=== PATIENT | female | born 1935 | race Caucasian/White ===

== ENCOUNTER → 2017-04-17 | Outpatient (CLI) | payer MEDICARE ==
[2017-04-17 15:10] LABS: EKG EKG PERFORMED
[2017-04-17 15:50] LABS: CH 30.9; CHCM 33.1; HCT 42.3 % (34.0-46.0); HDW 2.25; HGB 13.7 gm/dL (11.4-16.0); MCH 30.4 pg (25.0-35.0); MCHC 32.4 g/dL (31.0-37.0); MCV 93.6 fL (80.0-100.0); Mean Platelet Volume 8.1; RBC 4.51 m/uL (3.80-5.40); RDW 13.5 % (11.5-15.5); WBC 7.3 k/uL (3.8-10.6)
[2017-04-17 15:52] LABS: Appearance,Urine Clear (Clear); Bilirubin,Urine Negative (Negative); Glucose,Urine (UA) Negative (Negative); Ketones,Urine Negative (Negative); Leukocyte Esterase,Urine Negative (Negative); Nitrite,Urine Negative (Negative); Protein,Urine Negative (Negative); Specific Gravity,Urine 1.006 (1.001-1.035); UA Billing (MACRO vs. MICRO) CHEM; Urobilinogen,Urine <2.0 mg/dL (<2.0)
[2017-04-17 16:02] LABS: Partial Thromboplastin Time 23.4 sec (22.0-30.0); Prothrombin Time 10.2 sec (9.0-12.0)
[2017-04-17 16:18] LABS: ALT 26 U/L (9-52); AST 24 U/L (14-36); Alkaline Phosphatase 87 U/L (38-126); Anion Gap 8 mmol/L; Blood Urea Nitrogen 19 mg/dL (7-17); Calcium 9.2 mg/dL (8.4-10.2); Carbon Dioxide 30 mmol/L (22-30); Chloride 98 mmol/L (98-107); Glucose 79 mg/dL (74-99); Non-African American GFR(MDRD) >60 (>60 ml/min/1.73 sqM); Sodium 136 mmol/L (137-145); Total Bilirubin 0.3 mg/dL (0.2-1.3); Total Protein 6.9 g/dL (6.3-8.2)
== END | disposition home or self-care (01) ==
LOC: LABPAT 14:47
PROVIDERS: ATTEND Orthopaedic Surgery
DX: Z01.810 Encounter for preprocedural cardiovascular examination (principal); Z01.812 Encounter for preprocedural laboratory examination; Z51.81 Encounter for therapeutic drug level monitoring; Z79.01 Long term (current) use of anticoagulants
CPT/HCPCS: 36415; 80053; 81003; 85027; 85610; 85730; 87070; 93005

== ENCOUNTER 2017-05-03 07:30 | Inpatient (IN) | payer MEDICARE ==
[2017-04-22 14:54] VITALS: BMI 27.6
[~2017-05-03 07:30] MED LIST: ACETAMINOPHEN TAB 500 MG TAB PO ONE; CLINDAMYCIN 900 MG in DEXTROSE 5% IN WATER 50 ML IVPB ONE; DEXAMETHASONE SOD PHOSPHATE 10 MG/ML 1 ML VIAL IV ONE; HYDROmorphone 0.5 MG/0.5 ML SYRINGE IVP PRN; MELOXICAM 7.5 MG TAB PO ONE; MIDAZOLAM 2 MG/2 ML VIAL IV PRN; ONDANSETRON 4 MG/2 ML VIAL IVP ONE; TRANEXAMIC ACID 1,000 MG in SODIUM CHLORIDE 0.9% 100 ML IVPB ONE
[2017-05-03] MEDS: LACTATED RINGERS 1,000 ML IV SCH (13:45)
[2017-05-03] MEDS ORDERED: fentaNYL (PF) 50 MCG/ML 2 ML AMP IVP ONE (14:06)
[2017-05-03] MEDS ORDERED: DIAZEPAM 5 MG TAB PO PRN ×2 (14:12)
[2017-05-03] MEDS ORDERED: HYDROmorphone 1 MG/ML 1 ML SYRINGE IVP PRN (14:12)
[2017-05-03] MEDS ORDERED: HYDROmorphone 0.5 MG/0.5 ML SYRINGE IVP PRN ×3 (14:12)
[2017-05-03] MEDS ORDERED: NALOXONE 0.4 MG/ML 1 ML VIAL IV PRN (14:12)
[2017-05-03] MEDS ORDERED: HYDROcodone/APAP 5-325MG 1 EACH TAB PO PRN (14:12)
[2017-05-03] MEDS ORDERED: BISACODYL 10 MG SUPP RECTAL PRN (14:12)
[2017-05-03] MEDS ORDERED: hydrOXYzine PAMOATE 25 MG CAP PO PRN (14:12)
[2017-05-03] MEDS ORDERED: ONDANSETRON 4 MG/2 ML VIAL IVP PRN (14:12)
[2017-05-03] MEDS ORDERED: MAGNESIUM HYDROXIDE 2,400 MG/10 ML CUP PO PRN (14:12)
[2017-05-03] MEDS ORDERED: NA PHOS,M-B/NA PHOS,DI-BA 133 ML ENEMA RECTAL PRN (14:12)
[2017-05-03] MEDS ORDERED: ROPIVACAINE 1,100 MG, SODIUM CHLORIDE 0.9% 330 ML MISCELLANE PRN ×2 (14:34)
--- NOTE | 2017-05-03 14:37 | P.ONQ ---
Anesthesiology Proc Note - PNB - Peripheral Nerve Block Performed Right Adductor Canal Infusion Time Out Performed: Yes Indication: Acute Post-Operative Pain, Analgesia Specifically requested for management of pain by DrGabbi: Oscar Aguilar Sedation Type: Sedate with meaningful contact maintained Preparation: Sterile Prep Position: Supine Catheter Depth at Skin (cm): 8 Catheter: Indwelling Needle Types: Other (see comment) (Pajunk) Needle Size: 100mm (4") Needle Gauge: 18 Technique: Ultrasound Injectate: 0.5% Ropivacaine (see comment for volume) (20cc) Blood Aspirated: No Pain Paresthesia on Injection Noted: No Resistance on Injection: Normal Events: Uneventful and Well Tolerated
[2017-05-03] MEDS ORDERED: SODIUM CHLORIDE 0.9% 100 ML BAG ONE (14:48)
[2017-05-03] MEDS ORDERED: TRANEXAMIC ACID 1,000 MG/10 ML VIAL ONE (14:48)
[2017-05-03] MEDS ORDERED: PROPOFOL 10 MG/ML 20 ML VIAL IV ONE (14:48)
[2017-05-03] MEDS ORDERED: ePHEDrine SULFATE/0.9% NACL/PF 50 MG/5 ML SYRINGE IV ONE (14:48)
[2017-05-03] MEDS ORDERED: MIDAZOLAM 2 MG/2 ML VIAL ONE (14:48)
[2017-05-03] MEDS ORDERED: fentaNYL (PF) 50 MCG/ML 2 ML AMP ONE (14:48)
[2017-05-03] MEDS ORDERED: CLINDAMYCIN 1,800 MG in SODIUM CHLORIDE 0.9% IRRIGATIO 3,000 ML IRRIGATION ONE (15:01)
[2017-05-03] MEDS: ROPIVACAINE 246.25 MG, EPINEPHrine 0.5 MG, KETOROLAC 30 MG, cloNIDine HCL/PF 80 MCG, WA... MISCELLANE ONE ×10 (15:26→15:57)
--- NOTE | 2017-05-03 16:13 | P.OP ---
Date of Procedure: 05/03/17 Preoperative Diagnosis: Severe osteoarthritis right knee Postoperative Diagnosis: Severe osteoarthritis right knee Procedure(s) Performed: Right total knee arthroplasty Implants: Max and Nephew Oxinium femoral component size 4, right Max & Nephew Jailyn II right nonporous tibial baseplate size 3 Max & Nephew size 9 mm Legion XLPE dished articular insert, size 3-4 Max & Nephew Jailyn II resurfacing patellar component, 29 mm All components were cemented using Merritt bone cement.. The articulation is Oxinium on polyethylene. Anesthesia: spinal Surgeon: Oscar Aguilar Crane Crew Supervisor #1: Adelina Luna Estimated Blood Loss (ml): 50 Pathology: other (Bone and cartilage) Condition: stable Disposition: PACU Indications for Procedure: After failure of conservative treatment we discussed the surgical and nonsurgical treatment options at length. Patient wishes to proceed with a total knee arthroplasty. Complications specific to this procedure were discussed at length, including but not limited to infection, bleeding, stiffness , and nerve injury. Patient is aware of all these complications and informed consent was obtained Operative Findings: The operative findings are consistent with severe osteoarthritis of the right knee Description of Procedure: Patient was seen in the preoperative area consent was reviewed and operative site was marked with a skin marker. An adductor canal pain catheter was placed by anesthesia in the preoperative area. Patient was then brought to the operating room and given preoperative antibiotics intravenously. A spinal anesthetic was administered by the anesthesia department. A tourniquet was placed on the upper thigh and the lower extremity was prepped and draped in usual sterile fashion. A gram of transexamic acid was given. A universal timeout was then performed which confirmed the patient's name, surgical site, ALLERGIES, and consent. The lower extremity was then exsanguinated and tourniquet was inflated to 250 mmHg. A standard and anterior midline approach to the knee was performed. The skin and subcutaneous tissue was dissected down to the patellar tendon. A medial parapatellar arthrotomy was then performed. The knee was then extended, the patellar was everted, and the knee was again flexed. Anterior horns of both menisci were excised, and a release was performed to the posterior medial aspect of the knee. On gross visual inspection, there was complete loss of articular cartilage in the medial and patellofemoral joint spaces. There was also significant cartilage damage in the lateral compartment. There were multiple periarticular osteophytes which were then removed with a Ronguer. The femoral canal was then opened with the appropriate drill, and the intramedullary femoral cutting guide was then placed and set for 4 of valgus. The distal femoral cutting block was then pinned in place, and the distal femur was then cut. The cutting block was then removed and the cut was checked for flatness. Next, the sizing guide was then placed and set for 3 external rotation based off of the epicondylar axis and Whitesides line. After the femur was sized, the appropriate 4-in-1 cutting block was then pinned in place. The anterior condyles were cut without notching. The posterior and chamfer cuts were performed while protecting the collateral ligaments. The cutting block was then removed, and the femoral canal was plugged with autologous bone. Attention was then directed to the tibia. The remaining ACL was removed with a Ronguer, and the tibia was then gently subluxed forward with a large bent knee retractor. Any remaining menisci was excised. The posterior lateral corner was cauterized in order to cauterize the lateral geniculate artery. The extra medullary tibial cutting guide was then placed, set for the appropriate rotation , slope, and depth of resection. The proximal tibia cutting guide was then pinned in place. Proximal tibia was then cut and sized. Next trials were then placed with the appropriate-sized insert. The knee was able to fully extend and flex to 130 and was stable throughout all range of motion. The knee was then extended, patella everted. Patella was then measured, and then using an osteotomy guide, the patella was cut at the appropriate level. The patella was then measured and drilled and the patella trial was then placed. The knee was then taken through range of motion with the patella trial and the patella tracked normally. The knee was then extended patella trial was then removed and the patella was everted. Knee was then flexed and lug holes were drilled through the femoral trial and the femoral trial was then removed. The tibial was then exposed, and the tibial broach guide was then pinned in place after it was set for the appropriate rotation to allow for the most coverage without overhang. The tibia was then reamed and broached. The cut surfaces of bone were then irrigated with pulsatile lavage. The posterior structures were injected with the ropivacaine solution. The knee was also irrigated with Irrisept solution. The components were then opened, the cement was mixed, and the components were then cemented in place. The cement was allowed to harden with the knee in full extension. While the cement was hardening, the remaining soft tissues were then injected with a ropivacaine solution, which consisted of 246.25 mg of ropivacaine, 0.5 mg of epinephrine, 30 mg of Toradol, 80 g of clonidine, and 48.45 mL of sterile water, for a total of 100 mL of fluid injected. After the cemented hardened. The tourniquet was released, and hemostasis was obtained. A second gram of transexamic acid was given. The knee was again irrigated. The knee was again taken through range of motion and found to be stable throughout all range of motion of 0-130 , and the patella tracked normally. The fascia was then closed with #2 strata fix suture. The subcutaneous tissue was closed with 3-0 Vicryl and 3-0 strata fix. Dermabond tape was used for the skin and placed with the knee in flexion. The patient was placed in a sterile dressing. Patient was then transferred to recovery room in stable condition. The human resource assistant HADLEY Brice was required due the complexity surgery and the need for a skilled certified surgical first assistant. She assisted in positioning, draping, retraction, and closure of the wound.
[2017-05-03] MEDS: SODIUM CHLORIDE 0.9% 1,000 ML IV SCH (17:09)
--- NOTE | 2017-05-03 17:17 | XR ---
EXAMINATION TYPE: XR knee limited RT DATE OF EXAM: 05/03/2017 COMPARISON: NONE HISTORY: 81-year-old female evaluation for postoperative abnormality and alignment TECHNIQUE: Portable AP and lateral views FINDINGS: Images show placement of right total knee arthroplasty. Both distal femoral and proximal tibial compo nents of the prosthesis are well seated without periprosthetic fracture. Alignment is grossly anatomi c. Anterior soft tissue swelling with soft tissue gas as well as intra-articular air and joint effusi on compatible with recent operation. IMPRESSION: Uncomplicated postoperative appearance right total knee arthroplasty.
[2017-05-03] MEDS ORDERED: ACETAMINOPHEN TAB 325 MG TAB PO PRN (18:20)
[2017-05-03] MEDS ORDERED: KETOROLAC 30 MG/ML 1 ML VIAL IVP PRN (18:21)
--- NOTE | 2017-05-03 19:11 | P.CONS ---
History of Present Illness - Reason for Consult Perioperative consultation management - History of Present Illness Patient is admitted for right knee arthroplasty, elective Patient postoperatively is clinically doing well denied any fever, chills, nausea, vomiting, abdominal pain, dysuria, cough. Does drink her age recommend to avoid opiates, benzos ,barbiturates and use nonsteroidal anti-inflammatories for pain and patient will be started on Pepcid for GI prophylaxis due to prophylaxis as per primary service Review of Systems REVIEW OF SYSTEMS: CONSTITUTIONAL: No fever, no malaise, no fatigue. HEENT: No recent visual problems or hearing problems. Denied any sore throat. CARDIOVASCULAR: No chest pain, orthopnea, PND, no palpitations, no syncope. PULMONARY: No shortness of breath, no cough, no hemoptysis. GASTROINTESTINAL: No diarrhea, no nausea, no vomiting, no abdominal pain. Normoactive bowel sounds. NEUROLOGICAL: No headaches, no weakness, no numbness. HEMATOLOGICAL: Denies any bleeding or petechiae. GENITOURINARY: Denies any burning micturition, frequency, or urgency. MUSCULOSKELETAL/RHEUMATOLOGICAL: Denies any joint pain, swelling, or any muscle pain. ENDOCRINE: Denies any polyuria or polydipsia. The rest of the 14-point review of systems is negative. Past Medical History Past Medical History: GERD/Reflux, Hyperlipidemia, Hypertension, Osteoarthritis (OA) Additional Past Medical History / Comment(s): unable to tolerate statins, sinus problems, urinary incontinence History of Any Multi-Drug Resistant Organisms: None Reported Past Surgical History: Bladder Surgery, Orthopedic Surgery Additional Past Surgical History / Comment(s): bladder suspension, rt knee arthroscopy, hemmoroidectomy, latasha cataracts, rt eye sx for "hole in eye" Past Anesthesia/Blood Transfusion Reactions: No Reported Reaction Smoking Status: Former smoker - Past Family History Father Family Medical History: Cancer Medications and Allergies Home Medications Medication Instructions Recorded Confirmed Type Acetaminophen [Tylenol] 325 - 650 mg PO Q4H PRN 04/22/17 04/22/17 History Cholecalciferol [Vitamin D3] 1,000 unit PO DAILY 04/22/17 04/22/17 History Citalopram Hydrobromide 20 mg PO HS 04/22/17 04/22/17 History [Citalopram HBr] Hydrochlorothiazide 12.5 mg PO DAILY 04/22/17 04/22/17 History Omeprazole 20 mg PO DAILY 04/22/17 04/22/17 History amLODIPine [Norvasc] 2.5 mg PO QAM 04/22/17 05/03/17 History Allergies Allergy/AdvReac Type Severity Reaction Status Date / Time cephalexin [From Keflex] Allergy Rash/Hives Verified 05/03/17 18:19 Iodinated Contrast- Oral and Allergy Rash/Hives Verified 05/03/17 18:19 IV Dye Penicillins Allergy Rash/Hives Verified 05/03/17 18:19 Fnfttcm-Mxi-Stk Reductase AdvReac muscle pain Verified 05/03/17 18:19 Inhibitor Physical Exam Vitals: Vital Signs Temp Pulse Resp BP Pulse Ox 05/03/17 17:15 74 16 108/59 94 L 05/03/17 17:00 75 16 101/57 94 L 05/03/17 16:45 76 14 118/57 94 L 05/03/17 16:39 98.2 F 78 14 116/61 94 L 05/03/17 13:29 97.9 F 54 L 18 114/67 97 Intake and Output 05/03/17 05/03/17 05/03/17 06:59 14:59 22:59 Intake Total 956 151 Output Total 50 Balance 956 101 Intake: IV 956 151 Output: Estimated Blood Loss 50 PHYSICAL EXAMINATION: GENERAL: The patient is alert and oriented x3, not in any acute distress. Well developed, well nourished. HEENT: Pupils are round and equally reacting to light. EOMI. No scleral icterus. No conjunctival pallor. Normocephalic, atraumatic. No pharyngeal erythema. No thyromegaly. CARDIOVASCULAR: S1 and S2 present. No murmurs, rubs, or gallops. PULMONARY: Chest is clear to auscultation, no wheezing or crackles. ABDOMEN: Soft, nontender, nondistended, normoactive bowel sounds. No palpable organomegaly. MUSCULOSKELETAL: Deferred to orthopedic surgery EXTREMITIES: No cyanosis, clubbing, or pedal edema. NEUROLOGICAL: Gross neurological examination did not reveal any focal deficits. SKIN: No rashes. Assessment and Plan Plan: #1 total right knee arthroplasty: Postoperatively patient is clinically doing well pain management as mentioned abortively prophylaxis as mentioned above. #2 hypertension: To prevent perioperative hypotension, antidepressive medications will be held. #3 gastroesophageal reflux disease #4 hyperlipidemia For above-mentioned medical problems will continue appropriate home medications
[2017-05-03] MEDS: SENNOSIDES-DOCUSATE SODIUM 1 EACH TAB PO SCH (20:28)
[2017-05-03] MEDS: ASPIRIN 325 MG TAB PO SCH (20:29)
[2017-05-03] MEDS: CITALOPRAM HYDROBROMIDE 20 MG TAB PO SCH (20:29)
[2017-05-03] MEDS: CLINDAMYCIN 900 MG in DEXTROSE 5% IN WATER 50 ML IVPB SCH ×2 (20:29)
[2017-05-04] MEDS: CLINDAMYCIN 900 MG in DEXTROSE 5% IN WATER 50 ML IVPB SCH ×2 (03:23)
[2017-05-04 07:28] LABS: Basophils % (A) 0 %; CH 30.6; CHCM 32.9; Eosinophils % (A) 0 %; HCT 36.5 % (34.0-46.0); HDW 2.21; HGB 11.6 gm/dL (11.4-16.0); Luc # (Auto) 0.11; Luc % (Auto) 1; Lymphocytes # (A) 1.2 k/uL (1.0-4.8); Lymphocytes % (A) 9 %; MCH 29.8 pg (25.0-35.0); MCHC 31.9 g/dL (31.0-37.0); MCV 93.5 fL (80.0-100.0); Mean Platelet Volume 8.6; Monocytes # (A) 0.9 k/uL (0-1.0); Monocytes % (A) 7 %; Neutrophils # (A) 10.9 k/uL (1.3-7.7); Neutrophils % (A) 83 %; RDW 14.3 % (11.5-15.5); WBC 13.2 k/uL (3.8-10.6); WBC (Perox) 14.23
[2017-05-04] MEDS: PANTOPRAZOLE 40 MG TABLET PO SCH (08:16)
[2017-05-04] MEDS: ASPIRIN 325 MG TAB PO SCH ×2 (08:16→22:23)
[2017-05-04] MEDS: MELOXICAM 7.5 MG TAB PO SCH (08:17)
[2017-05-04] MEDS: SODIUM CHLORIDE 0.9% 1,000 ML IV SCH (08:22)
--- NOTE | 2017-05-04 10:44 | P.PN ---
Subjective Progress Note Date: 05/04/17 This is an 81-year-old female who is status post right total knee arthroplasty. This is postoperative day #1. Patient states her pain is well controlled. Patient does not have any new complaints today. Objective - Vital Signs Vital signs: Vital Signs Temp 98.1 F 05/04/17 07:00 Pulse 64 05/04/17 07:00 Resp 14 05/04/17 07:00 BP 112/68 05/04/17 07:00 Pulse Ox 92 L 05/04/17 07:00 Intake & Output 05/03/17 05/04/17 05/04/17 18:59 06:59 18:59 Intake Total 1107 160 Output Total 50 Balance 1057 160 Intake: IV 1107 Oral 160 Output: Estimated Blood Loss 50 Other: Voiding Method Bedside Commode Bedside Commode Diaper Diaper # Voids 2 2 - Exam Vital signs are stable. Patient is in no acute distress and is alert and oriented 3. Calf is soft and nontender. Dressing is clean, dry, and intact over right knee. Neurovascular status intact. Patient has full foot and ankle motion. - Labs CBC & Chem 7: 05/04/17 06:39 Labs: Abnormal Lab Results - Last 24 Hours (Table) 05/04/17 Range/Units 06:39 WBC 13.2 H (3.8-10.6) k/uL Neutrophils # 10.9 H (1.3-7.7) k/uL Assessment and Plan (1) Primary osteoarthritis of right knee Current Visit: Yes Status: Acute Code(s): M17.11 - UNILATERAL PRIMARY OSTEOARTHRITIS, RIGHT KNEE SNOMED Code(s): 549075226 (2) S/P total knee arthroplasty Current Visit: Yes Status: Acute Code(s): Z96.659 - PRESENCE OF UNSPECIFIED ARTIFICIAL KNEE JOINT SNOMED Code(s): 0258423162906 Plan: #1 Continue with routine postoperative care. Leave dressing in place for 1 week. #2 Anticoagulation with aspirin. #3 Physical therapy and CPM today. #4 Appreciate input from medicine. #5 Anticipate discharge to rehab Saturday.
[2017-05-04] MEDS: HYDROcodone/APAP 5-325MG 1 EACH TAB PO PRN (14:03)
--- NOTE | 2017-05-04 18:29 | P.PN ---
Progress Note - Text 1042 Anesthesia POD 1. Patient is status post right TKR under spinal anesthesia with a right adductor canal catheter placed for postoperative pain relief. With ropivacaine 0.2% running at 12 cc's per hour, the patient's VAS is (3, 4] although she was readily able to stand to get untangled from her hospital gown with no grimacing). Catheter site is clean dry and intact.
[2017-05-04] MEDS: LACTATED RINGERS 1,000 ML IV SCH (22:21)
[2017-05-04] MEDS: SENNOSIDES-DOCUSATE SODIUM 1 EACH TAB PO SCH (22:23)
[2017-05-04] MEDS: CITALOPRAM HYDROBROMIDE 20 MG TAB PO SCH (22:23)
[2017-05-05] MEDS: SODIUM CHLORIDE 0.9% 1,000 ML IV SCH ×2 (01:41→18:07)
[2017-05-05] MEDS: PANTOPRAZOLE 40 MG TABLET PO SCH (07:48)
--- NOTE | 2017-05-05 08:15 | P.PN ---
Subjective This is an 81-year-old female who is status post right total knee arthroplasty. This is postoperative day #2. Patient states her pain is well controlled. Patient has been up and walking with physical therapy. Patient does complain of loose stool today after a stool softener was given, otherwise patient does not have any new complaints today. Patient denies any fever/chills. Objective - Vital Signs Vital signs: Vital Signs Temp 97.6 F 05/05/17 07:00 Pulse 74 05/05/17 07:00 Resp 16 05/05/17 07:00 BP 119/56 05/05/17 07:00 Pulse Ox 93 L 05/05/17 07:00 Intake & Output 05/04/17 05/05/17 05/05/17 19:59 06:59 18:59 Intake Total Output Total Balance Intake: Oral Output: Urine Stool Urine/Stool Mix Other: Voiding Method Toilet Diaper Incontinent # Voids # Bowel Movements - Exam Vital signs are stable. Patient is in no acute distress and is alert and oriented 3. Calf is soft and nontender. Dressing is clean, dry, and intact over right knee. Neurovascular status intact. Patient has full foot and ankle motion. - Labs CBC & Chem 7: 05/04/17 06:39 Assessment and Plan (1) Primary osteoarthritis of right knee Current Visit: Yes Status: Acute Code(s): M17.11 - UNILATERAL PRIMARY OSTEOARTHRITIS, RIGHT KNEE SNOMED Code(s): 402979034 (2) S/P total knee arthroplasty Current Visit: Yes Status: Acute Code(s): Z96.659 - PRESENCE OF UNSPECIFIED ARTIFICIAL KNEE JOINT SNOMED Code(s): 2713558578755 Plan: #1 Continue with routine postoperative care. Leave dressing in place for 1 week. #2 Anticoagulation with aspirin. #3 Physical therapy and CPM today. #4 Appreciate input from medicine. #5 Anticipate discharge to rehab Saturday.
[2017-05-05] MEDS: ASPIRIN 325 MG TAB PO SCH ×2 (08:17→21:01)
[2017-05-05] MEDS: MELOXICAM 7.5 MG TAB PO SCH (08:17)
--- NOTE | 2017-05-05 09:46 | P.PN ---
Progress Note - Text 0920 Anesthesia POD 2. Patient is status post right TKR under spinal anesthesia with a right adductor canal catheter placed for postoperative pain relief. With ropivacaine 0.2% running at 12 cc's per hour, the patient's VAS is (1, 4). Catheter site is clean dry and intact.
[2017-05-05] MEDS: HYDROcodone/APAP 5-325MG 1 EACH TAB PO PRN ×2 (13:26→21:17)
[2017-05-05] MEDS: SENNOSIDES-DOCUSATE SODIUM 1 EACH TAB PO SCH (21:01)
[2017-05-05] MEDS: CITALOPRAM HYDROBROMIDE 20 MG TAB PO SCH (21:01)
[2017-05-05] MEDS: LACTATED RINGERS 1,000 ML IV SCH (21:21)
[2017-05-06 06:34] LABS: Basophils % (A) 0 %; CH 30.2; CHCM 32.5; Eosinophils # (A) 0.2 k/uL (0-0.7); Eosinophils % (A) 2 %; HCT 32.6 % (34.0-46.0); HDW 2.28; Luc # (Auto) 0.13; Luc % (Auto) 1; Lymphocytes # (A) 1.9 k/uL (1.0-4.8); Lymphocytes % (A) 21 %; MCH 31.6 pg (25.0-35.0); MCHC 33.8 g/dL (31.0-37.0); MCV 93.3 fL (80.0-100.0); Mean Platelet Volume 8.4; Monocytes # (A) 0.8 k/uL (0-1.0); Monocytes % (A) 9 %; Neutrophils # (A) 6.2 k/uL (1.3-7.7); Neutrophils % (A) 67 %; RBC 3.49 m/uL (3.80-5.40); RDW 13.6 % (11.5-15.5); WBC 9.3 k/uL (3.8-10.6); WBC (Perox) 9.18
--- NOTE | 2017-05-06 08:41 | P.DS ---
Providers Date of admission: 05/03/17 12:23 Expected date of discharge: 05/06/17 Attending physician: Oscar Aguilar Consults: 05/03/17 14:12 Consult Physician Routine Consulting Provider: Enrique Sheldon Consult Reason/Comments: medical management Do you want consulting provider notified?: Yes Primary care physician: Cat Kaplan - Discharge Diagnosis(es) (1) Primary osteoarthritis of right knee Current Visit: Yes Status: Acute (2) S/P total knee arthroplasty Current Visit: Yes Status: Acute Hospital Course: This is a 81-year-old female with known history of degenerative arthritis of the right knee. The patient presents for evaluation. After discussion and consideration patient elects to proceed with total knee arthroplasty. The patient is seen preoperatively by Dr. Aguilar and cleared for surgery. Patient is admitted to [facility] on 05/03/2017 for total knee arthroplasty. The procedures performed without complication or sequelae. The patient is doing well postoperatively. Labs and vital signs are stable on day of discharge. On day of discharge patient's knee incision is healing well. There is minimal erythema. There is no drainage noted at this time. There is minimal soft tissue swelling to the knee. Patient has full foot and ankle motion without difficulty or pain. Neurovascular status to the right lower extremity is intact. Patient is discharged to rehab in good condition. Please see med rec for accurate list of home medications. Plan - Discharge Summary Discharge Rx Participant: No New Discharge Prescriptions: New Aspirin 325 mg PO BID #60 tab HYDROcodone/APAP 5-325MG [Vidalia 5-325] 1 - 2 tab PO Q4-6H PRN #90 tab PRN Reason: Pain Sennosides-Docusate Sodium [Senokot-S] 1 tab PO BID #60 tablet No Action Cholecalciferol [Vitamin D3] 1,000 unit PO DAILY Acetaminophen [Tylenol] 325 - 650 mg PO Q4H PRN PRN Reason: Pain amLODIPine [Norvasc] 2.5 mg PO QAM Omeprazole 20 mg PO DAILY Hydrochlorothiazide 12.5 mg PO DAILY Citalopram Hydrobromide [Citalopram HBr] 20 mg PO HS Discharge Medication List Acetaminophen [Tylenol] 325 - 650 mg PO Q4H PRN 04/22/17 [History] Cholecalciferol [Vitamin D3] 1,000 unit PO DAILY 04/22/17 [History] Citalopram Hydrobromide [Citalopram HBr] 20 mg PO HS 04/22/17 [History] Hydrochlorothiazide 12.5 mg PO DAILY 04/22/17 [History] Omeprazole 20 mg PO DAILY 04/22/17 [History] amLODIPine [Norvasc] 2.5 mg PO QAM 04/22/17 [History] Aspirin 325 mg PO BID #60 tab 05/05/17 [Rx] HYDROcodone/APAP 5-325MG [Vidalia 5-325] 1 - 2 tab PO Q4-6H PRN #90 tab 05/05/17 [ Rx] Sennosides-Docusate Sodium [Senokot-S] 1 tab PO BID #60 tablet 05/05/17 [Rx] Follow up Appointment(s)/Referral(s): Etelvina Gómez [NON-STAFF] - 1 Week Oscar Aguilar DO [Doctor of Osteopathic Medicine] - 2 Weeks Activity/Diet/Wound Care/Special Instructions: Weightbearing as tolerated with a walker CPM 5-6h daily Leave dressing intact. May be removed by in 7 days (05/10/2017). May shower with dressing on. [facility] with questions or concerns [phone] Discharge Disposition: TRANSFER TO SNF/ECF
[2017-05-06] MEDS: PANTOPRAZOLE 40 MG TABLET PO SCH (09:19)
[2017-05-06] MEDS: ASPIRIN 325 MG TAB PO SCH ×2 (09:19→20:59)
[2017-05-06] MEDS: MELOXICAM 7.5 MG TAB PO SCH (09:20)
--- NOTE | 2017-05-06 13:03 | P.PN ---
Progress Note - Text 0700 Anesthesia POD[]. Patient is status post right TKR under spinal anesthesia with a right adductor canal catheter placed for postoperative pain relief. Ropivacaine reservoir ran out yesterday afternoon the catheter was removed and the site is without inflammation or other signs of infection.
[2017-05-06] MEDS: HYDROcodone/APAP 5-325MG 1 EACH TAB PO PRN ×2 (15:23→20:59)
[2017-05-06] MEDS: SODIUM CHLORIDE 0.9% 1,000 ML IV SCH ×2 (15:28→23:04)
[2017-05-06] MEDS: SENNOSIDES-DOCUSATE SODIUM 1 EACH TAB PO SCH (20:59)
[2017-05-06] MEDS: CITALOPRAM HYDROBROMIDE 20 MG TAB PO SCH (20:59)
--- NOTE | 2017-05-06 21:44 | PN ---
PROGRESS NOTE DATE OF SERVICE: 05/06/17. PRESENTING COMPLAINT: Right knee surgery. INTERVAL HISTORY: Patient is status post right knee surgery. No chest pain. Short of breath. Did work with physical therapy. Did tolerate a diet. Sitting up. REVIEW OF SYSTEMS: Done for constitutional, cardiovascular, GI, pulmonary, musculoskeletal; relevant findings as above. CURRENT MEDICATIONS: Reviewed that include aspirin for DVT. PHYSICAL EXAMINATION: Temperature 98, pulse 63, respirations 16, blood pressure 116/72. General appearance sitting up comfortable. Eyes pupils equal, conjunctivae normal. NECK: JVD not raised. Mass not palpable. Respiratory effort lungs fair entry. Cardiovascular first and second sounds normal. No edema. ABDOMEN: Soft, nontender. Liver and spleen not palpable. Psychiatry: Alert and oriented x3. Mood and affect normal. INVESTIGATIONS: White count 9.3. ASSESSMENT: 1. Right total knee arthroplasty. 2. Gastroesophageal reflux disease. 3. Hyperlipidemia. 4. Essential hypertension. 5. Primary osteoarthritis in other joints. 6. Chronic urinary stress incontinence. 7. Anxiety disorder, not otherwise specified. PLAN: Continue medication and treatment plan. Care was discussed with the patient. No new issues. Thank you, Dr. Aguilar. Looking at patient possibly going to the [facility]. MMODL / IJN: [id number] /
[2017-05-07] MEDS: HYDROcodone/APAP 5-325MG 1 EACH TAB PO PRN ×3 (03:55→21:30)
[2017-05-07] MEDS: PANTOPRAZOLE 40 MG TABLET PO SCH (08:39)
[2017-05-07] MEDS: MELOXICAM 7.5 MG TAB PO SCH (08:39)
[2017-05-07] MEDS: ASPIRIN 325 MG TAB PO SCH ×2 (08:40→20:52)
--- NOTE | 2017-05-07 14:58 | PN ---
PROGRESS NOTE DATE OF SERVICE: 05/07/2017 PRESENTING COMPLAINT: Right knee surgery. INTERVAL HISTORY: Patient is status post right knee surgery, some pain is present. No nausea, vomiting, did tolerate her breakfast. No new issues. REVIEW OF SYSTEMS: Done for constitutional, cardiovascular, GI, pulmonary, musculoskeletal: relevant findings as above. CURRENT MEDICATIONS: Reviewed. PHYSICAL EXAMINATION: Temperature 97.7, pulse 54, respirations 18, blood pressure 132/56, pulse ox 96% on room air. GENERAL APPEARANCE: Sitting up, comfortable. EYES: Pupils equal, conjunctivae normal. NECK: JVD not raised. Mass not palpable. RESPIRATORY: Effort normal. LUNGS: Fair entry. CARDIOVASCULAR: First and second sounds normal. No edema. ABDOMEN: Soft, nontender. Liver and spleen not palpable. PSYCHIATRY: Alert and oriented x3. Mood and affect is normal. INVESTIGATIONS: White count 9.3, hemoglobin 11.0. ASSESSMENT: 1. Right total knee arthroplasty. 2. Gastroesophageal reflux disease. 3. Hyperlipidemia. 4. Essential hypertension. 5. Primary osteoarthritis in other joints. 6. Chronic urinary stress incontinence. 7. Anxiety disorder, not otherwise specified. PLAN: Patient is doing well. Continue with current medication and treatment plan. Thank you, Dr. Aguilar. MMMELISSAL / GEORGEN: [id number] /
[2017-05-07] MEDS: SODIUM CHLORIDE 0.9% 1,000 ML IV SCH (20:44)
[2017-05-07] MEDS: SENNOSIDES-DOCUSATE SODIUM 1 EACH TAB PO SCH ×2 (20:46→20:52)
[2017-05-07] MEDS: CITALOPRAM HYDROBROMIDE 20 MG TAB PO SCH (20:51)
[2017-05-08 02:23] VITALS: PULSE 58; RESP 16; TEMP 98
[2017-05-08] MEDS: HYDROcodone/APAP 5-325MG 1 EACH TAB PO PRN (06:09)
[2017-05-08 08:15] VITALS: BP 137/51
[2017-05-08] MEDS: PANTOPRAZOLE 40 MG TABLET PO SCH (08:49)
[2017-05-08] MEDS: MELOXICAM 7.5 MG TAB PO SCH (08:49)
[2017-05-08] MEDS: ASPIRIN 325 MG TAB PO SCH (08:49)
--- NOTE | 2017-05-08 10:09 | P.DS ---
Providers Date of admission: 05/03/17 12:23 Expected date of discharge: 05/08/17 Attending physician: Oscar Aguilar Consults: 05/03/17 14:12 Consult Physician Routine Consulting Provider: Enrique Sheldon Consult Reason/Comments: medical management Do you want consulting provider notified?: Yes Primary care physician: Cat Kaplan - Discharge Diagnosis(es) (1) Primary osteoarthritis of right knee Current Visit: Yes Status: Acute (2) S/P total knee arthroplasty Current Visit: Yes Status: Acute Hospital Course: This is a 81-year-old female with known history of degenerative arthritis of the right knee. The patient presents for evaluation. After discussion and consideration patient elects to proceed with total knee arthroplasty. The patient is seen preoperatively by Dr. Aguilar and cleared for surgery. Patient is admitted to [facility] on 05/03/2017 for total knee arthroplasty. The procedures performed without complication or sequelae. The patient is doing well postoperatively. Labs and vital signs are stable on day of discharge. Patient's discharge was postponed due to a delay in ECF placement. Patient has been doing well with physical therapy and her pain is well controlled. On day of discharge patient's knee incision is healing well. There is minimal erythema. There is no drainage noted at this time. There is minimal soft tissue swelling to the knee. Patient has full foot and ankle motion without difficulty or pain. Neurovascular status to the right lower extremity is intact. Patient is discharged in good condition. Please see med rec for accurate list of home medications. Plan - Discharge Summary Discharge Rx Participant: No New Discharge Prescriptions: New Aspirin 325 mg PO BID #60 tab HYDROcodone/APAP 5-325MG [[place] 5-325] 1 - 2 tab PO Q4-6H PRN #90 tab PRN Reason: Pain Sennosides-Docusate Sodium [Senokot-S] 1 tab PO BID #60 tablet No Action Cholecalciferol [Vitamin D3] 1,000 unit PO DAILY Acetaminophen [Tylenol] 325 - 650 mg PO Q4H PRN PRN Reason: Pain amLODIPine [Norvasc] 2.5 mg PO QAM Omeprazole 20 mg PO DAILY Hydrochlorothiazide 12.5 mg PO DAILY Citalopram Hydrobromide [Citalopram HBr] 20 mg PO HS Discharge Medication List Acetaminophen [Tylenol] 325 - 650 mg PO Q4H PRN 04/22/17 [History] Cholecalciferol [Vitamin D3] 1,000 unit PO DAILY 04/22/17 [History] Citalopram Hydrobromide [Citalopram HBr] 20 mg PO HS 04/22/17 [History] Hydrochlorothiazide 12.5 mg PO DAILY 04/22/17 [History] Omeprazole 20 mg PO DAILY 04/22/17 [History] amLODIPine [Norvasc] 2.5 mg PO QAM 04/22/17 [History] Aspirin 325 mg PO BID #60 tab 05/05/17 [Rx] HYDROcodone/APAP 5-325MG [[place] 5-325] 1 - 2 tab PO Q4-6H PRN #90 tab 05/05/17 [ Rx] Sennosides-Docusate Sodium [Senokot-S] 1 tab PO BID #60 tablet 05/05/17 [Rx] Follow up Appointment(s)/Referral(s): [facility], [NON-STAFF] - 1 Week Oscar Aguilar DO [Doctor of Osteopathic Medicine] - 05/17/17 10:45 am Ambulatory/Diagnostic Orders: Continuous Passive Motion (CPM) Machine [DME.AMB1] Time Frame: 3 Weeks, Location : Determined By Patient Activity/Diet/Wound Care/Special Instructions: Weightbearing as tolerated with a walker CPM 5-6h daily Leave dressing intact. May be removed by in 7 days (05/10/2017). May shower with dressing on. [facility] with questions or concerns [phone] Discharge Disposition: TRANSFER TO SNF/ECF
--- NOTE | 2017-05-08 14:44 | PN ---
PROGRESS NOTE DATE OF SERVICE: 05/08/2017 PRESENTING COMPLAINT: Right knee surgery. INTERVAL HISTORY: Patient is status post right knee surgery, doing better. Pain is controlled, did work with physical therapy. No chest pain, short of breath. Up and about. REVIEW OF SYSTEMS: Done for constitutional, cardiovascular, GI, pulmonary, musculoskeletal; relevant findings as above. CURRENT MEDICATIONS: Reviewed. PHYSICAL EXAMINATION: Temperature 98, pulse 58, respiration 16, blood pressure 137/51, pulse ox 97% on room air. GENERAL APPEARANCE: Sitting up, comfortable. EYES: Pupils equal, conjunctivae normal. NECK: JVD not raised. Mass not palpable. RESPIRATORY: Effort normal. Lungs are clear. CARDIOVASCULAR: First and second sounds normal. No edema. ABDOMEN: Soft, nontender. Liver and spleen not palpable. PSYCHIATRY: Alert and oriented x3. Mood and affect normal. INVESTIGATIONS: Hemoglobin is 11. ASSESSMENT: 1. Right total knee arthroplasty. 2. Gastroesophageal reflux disease. 3. Hyperlipidemia. 4. Essential hypertension. 5. Primary osteoarthritis in other joints. 6. Chronic urinary stress incontinence. 7. Anxiety disorder, not otherwise specified. PLAN: Patient doing well. Continue current medication and treatment plan. Thank you, Dr. Aguilar. MMODL / IJN: [id number] /
== END 2017-05-08 11:53 | DRG 470 ==
LOC: 2ORMAIN 12:23 → 3SUR 16:33
PROVIDERS: ADMIT Orthopaedic Surgery; ATTEND Orthopaedic Surgery
PROC: 0SRC069 Replacement of Right Knee Joint with Oxidized Zirconium on Polyethylene Synthetic Substitute, Cemented, Open Approach (ICD-10-PCS; principal; 2017-05-03 15:05)
DX: M17.11 Unilateral primary osteoarthritis, right knee (principal); I10 Essential (primary) hypertension; E78.5 Hyperlipidemia, unspecified; F41.9 Anxiety disorder, unspecified; K21.9 Gastro-esophageal reflux disease without esophagitis; N39.3 Stress incontinence (female) (male); Z79.899 Other long term (current) drug therapy; Z87.891 Personal history of nicotine dependence; Z79.1 Long term (current) use of non-steroidal anti-inflammatories (NSAID); Z88.3 Allergy status to other anti-infective agents; Z88.0 Allergy status to penicillin
CPT/HCPCS: 85025; 88300

== ENCOUNTER 2022-01-30 12:02 | Observation (INO) | payer MEDICARE ==
--- NOTE | 2022-01-30 13:47 | ED ---
General Adult HPI - General Chief complaint: Neuro Symptoms/Deficit Stated complaint: Stroke symptoms Time Seen by Provider: 01/30/22 13:44 Source: patient, family, RN notes reviewed, old records reviewed Mode of arrival: wheelchair - History of Present Illness Initial comments: This is an 86-year-old female presents emergency Department complaining that she's lost vision in her left eye. I saw the patient in triage. Patient states that the patient lost started 4 days ago. Patient went to see the immigration lawyer and he believes the patient had retinal artery occlusion in the left eye. Patient is a very poor historian according to the son but he believes the immigration lawyer thought that the patient's visual field loss was in the upper left visual field. Patient denies headache. Patient denies any other neurologic deficit disorder speech numbness or weakness. Patient denies any eye pain. - Related Data Home Medications Medication Instructions Recorded Confirmed Citalopram Hydrobromide 20 mg PO DAILY 04/22/17 01/30/22 [Citalopram HBr] Omeprazole 20 mg PO DAILY 04/22/17 01/30/22 Pravastatin Sodium [Pravachol] 20 mg PO HS 01/30/22 01/30/22 amLODIPine [Norvasc] 10 mg PO DAILY 01/30/22 01/30/22 carvediloL [Coreg] 6.25 mg PO BID 01/30/22 01/30/22 Allergies Allergy/AdvReac Type Severity Reaction Status Date / Time cephalexin [From Keflex] Allergy Rash/Hives Verified 01/30/22 14:20 Iodinated Contrast Media Allergy Rash/Hives Verified 01/30/22 14:20 [Iodinated Contrast- Oral and IV Dye] Penicillins Allergy Rash/Hives Verified 01/30/22 14:20 Sekmogl-ZAK-RiA Reductase AdvReac muscle pain Verified 01/30/22 14:20 Inhibitor [Qczwjll-Ulz-Lom Reductase Inhibitor] Review of Systems ROS Statement: Those systems with pertinent positive or pertinent negative responses have been documented in the HPI. ROS Other: All systems not noted in ROS Statement are negative. Past Medical History Past Medical History: GERD/Reflux, Hyperlipidemia, Hypertension, Osteoarthritis (OA) Additional Past Medical History / Comment(s): unable to tolerate statins, sinus problems, urinary incontinence History of Any Multi-Drug Resistant Organisms: None Reported Past Surgical History: Bladder Surgery, Orthopedic Surgery Additional Past Surgical History / Comment(s): bladder suspension, rt knee arthroscopy, hemmoroidectomy, latasha cataracts, rt eye sx for "hole in eye" Past Anesthesia/Blood Transfusion Reactions: No Reported Reaction Past Psychological History: Anxiety Past Alcohol Use History: None Reported Past Drug Use History: None Reported - Past Family History Father Family Medical History: Cancer General Exam - General Exam Comments Initial Comments: GENERAL: Patient is well-developed and well-nourished. Patient is nontoxic and well- hydrated and is in no acute distress. ENT: Neck is soft and supple. No significant lymphadenopathy is noted. Oropharynx is clear. Moist mucous membranes. Neck has full range of motion without eliciting any pain. EYES: The sclera were anicteric and conjunctiva were pink and moist. Pupils are both dilated from being at the immigration lawyer office. Eyelids were unremarkable. PULMONARY: Unlabored respirations. Good breath sounds bilaterally. No audible rales rhonchi or wheezing was noted. CARDIOVASCULAR: There is a regular rate and rhythm without any murmurs gallops or rubs. ABDOMEN: Soft and nontender with normal bowel sounds. SKIN: Skin is clear with no lesions or rashes and otherwise unremarkable. NEUROLOGIC: Patient is alert and oriented x3. Cranial nerves II through XII are grossly intact. Motor and sensory are also intact. Normal speech, volume and content. Symmetrical smile. MUSCULOSKELETAL: Normal extremities with adequate strength and full range of motion. LYMPHATICS: No significant lymphadenopathy is noted PSYCHIATRIC: Normal psychiatric evaluation. Course Vital Signs 01/30/22 01/30/22 01/30/22 12:04 16:00 17:02 Temperature 98.0 F Pulse Rate 77 88 70 Respiratory 18 22 16 Rate Blood Pressure 177/82 126/88 114/78 O2 Sat by Pulse 94 L 98 95 Oximetry Medical Decision Making - Medical Decision Making Visual acuity was not done because the patient's both eyes were dilated. Difficult to assess visual field deficit because patient seemed to answer how she thought I wanted her to answer. Son states she is a very poor historian and does not want to admit any problems. EKG shows sinus rhythm at 72 bpm NH interval 290 QRS is 113 QT interval 355 QTC is 379. Patient's EKG shows no ST segment elevation. CT of the brain shows no acute abnormality. CTA shows a basilar artery occlusion as well as a left subclavian occlusion. I spoke with Dr. Pastrana he agrees to see the patient tomorrow and he will consider talking to her neurointerventionalist - Lab Data Result diagrams: 01/30/22 13:37 01/30/22 13:37 Lab Results 01/30/22 01/30/22 01/30/22 Range/Units 13:37 13:37 13:37 WBC 7.4 (3.8-10.6) k/uL RBC 4.90 (3.80-5.40) m/uL Hgb 14.6 (11.4-16.0) gm/dL Hct 43.9 (34.0-46.0) % MCV 89.7 (80.0-100.0) fL MCH 29.8 (25.0-35.0) pg MCHC 33.2 (31.0-37.0) g/dL RDW 13.4 (11.5-15.5) % Plt Count 193 (150-450) k/uL MPV 9.3 Neutrophils % 57 % Lymphocytes % 31 % Monocytes % 7 % Eosinophils % 2 % Basophils % 1 % Neutrophils # 4.2 (1.3-7.7) k/uL Lymphocytes # 2.3 (1.0-4.8) k/uL Monocytes # 0.5 (0-1.0) k/uL Eosinophils # 0.2 (0-0.7) k/uL Basophils # 0.1 (0-0.2) k/uL PT 10.1 (9.0-12.0) sec INR 0.9 (<1.2) APTT 23.9 (22.0-30.0) sec Sodium 141 (137-145) mmol/L Potassium 3.6 (3.5-5.1) mmol/L Chloride 103 (98-107) mmol/L Carbon Dioxide 31 H (22-30) mmol/L Anion Gap 7 mmol/L BUN 18 H (7-17) mg/dL Creatinine 0.81 (0.52-1.04) mg/dL Est GFR (CKD-EPI)AfAm 76 (>60 ml/min/1.73 sqM) Est GFR (CKD-EPI)NonAf 66 (>60 ml/min/1.73 sqM) Glucose 98 (74-99) mg/dL Calcium 9.0 (8.4-10.2) mg/dL Total Bilirubin 0.4 (0.2-1.3) mg/dL AST 26 (14-36) U/L ALT 13 (4-34) U/L Alkaline Phosphatase 133 H (38-126) U/L Troponin I (0.000-0.034) ng/mL Total Protein 8.7 H (6.3-8.2) g/dL Albumin 4.7 (3.5-5.0) g/dL 01/30/22 Range/Units 13:37 WBC (3.8-10.6) k/uL RBC (3.80-5.40) m/uL Hgb (11.4-16.0) gm/dL Hct (34.0-46.0) % MCV (80.0-100.0) fL MCH (25.0-35.0) pg MCHC (31.0-37.0) g/dL RDW (11.5-15.5) % Plt Count (150-450) k/uL MPV Neutrophils % % Lymphocytes % % Monocytes % % Eosinophils % % Basophils % % Neutrophils # (1.3-7.7) k/uL Lymphocytes # (1.0-4.8) k/uL Monocytes # (0-1.0) k/uL Eosinophils # (0-0.7) k/uL Basophils # (0-0.2) k/uL PT (9.0-12.0) sec INR (<1.2) APTT (22.0-30.0) sec Sodium (137-145) mmol/L Potassium (3.5-5.1) mmol/L Chloride (98-107) mmol/L Carbon Dioxide (22-30) mmol/L Anion Gap mmol/L BUN (7-17) mg/dL Creatinine (0.52-1.04) mg/dL Est GFR (CKD-EPI)AfAm (>60 ml/min/1.73 sqM) Est GFR (CKD-EPI)NonAf (>60 ml/min/1.73 sqM) Glucose (74-99) mg/dL Calcium (8.4-10.2) mg/dL Total Bilirubin (0.2-1.3) mg/dL AST (14-36) U/L ALT (4-34) U/L Alkaline Phosphatase (38-126) U/L Troponin I <0.012 (0.000-0.034) ng/mL Total Protein (6.3-8.2) g/dL Albumin (3.5-5.0) g/dL Disposition Clinical Impression: Retinal artery occlusion, Basilar artery occlusion, Left subclavian artery occlusion Disposition: ADMITTED IP TO THIS HOSP Referrals: Cat Kaplan MD [Primary Care Provider] - 1-2 days Time of Disposition: 17:29
[2022-01-30 14:05] LABS: Basophils # (A) 0.1 k/uL (0-0.2); Basophils % (A) 1 %; Eosinophils # (A) 0.2 k/uL (0-0.7); Eosinophils % (A) 2 %; HCT 43.9 % (34.0-46.0); HGB 14.6 gm/dL (11.4-16.0); Lymphocytes # (A) 2.3 k/uL (1.0-4.8); Lymphocytes % (A) 31 %; MCH 29.8 pg (25.0-35.0); MCHC 33.2 g/dL (31.0-37.0); MCV 89.7 fL (80.0-100.0); Mean Platelet Volume 9.3; Monocytes # (A) 0.5 k/uL (0-1.0); Monocytes % (A) 7 %; Neutrophils # (A) 4.2 k/uL (1.3-7.7); Neutrophils % (A) 57 %; Platelet Count 193 k/uL (150-450); RDW 13.4 % (11.5-15.5); WBC 7.4 k/uL (3.8-10.6)
[2022-01-30 14:17] LABS: INR 0.9 (<1.2); Partial Thromboplastin Time 23.9 sec (22.0-30.0); Prothrombin Time 10.1 sec (9.0-12.0)
[2022-01-30 14:19] LABS: Albumin 4.7 g/dL (3.5-5.0); Potassium 3.6 mmol/L (3.5-5.1); Total Bilirubin 0.4 mg/dL (0.2-1.3); Total Protein 8.7 g/dL (6.3-8.2)
[2022-01-30] MEDS ORDERED: diphenhydrAMINE 50 MG/ML 1 ML VIAL IVP STA (14:31)
[2022-01-30] MEDS ORDERED: methylPREDNISolone SOD SUCCI 125 MG/2 ML VIAL IV STA (14:31)
[2022-01-30] MEDS ORDERED: FAMOTIDINE 20 MG/2 ML VIAL IV STA (14:31)
--- NOTE | 2022-01-30 15:45 | CT ---
EXAMINATION TYPE: CT brain wo con for TPA CT DLP: 1036.6 mGycm, Automated exposure control for dose reduction was used. DATE OF EXAM: 01/30/2022 3:38 PM COMPARISON: None. CLINICAL INDICATION:Female, 86 years old with history of Neuro deficit, acute, stroke suspected, weak ness, ams TECHNIQUE: Brain: Axial CT images of the brain were obtained with coronal and sagittal reformats created and rev iewed. Contrast used: None. Oral contrast used: None. FINDINGS: Brain: Extra-axial spaces: No abnormal extra-axial fluid collections. Ventricular system: Dilatation in proportion to cerebral atrophy. Cerebral parenchyma: Cerebral atrophy. No acute intraparenchymal hemorrhage or mass effect. The hernandez -white junction is well differentiated. Scattered hypoattenuating areas are seen within the white mat ter. Cerebellum: Unremarkable. Mass effect: No evidence of midline shift. Intracranial vasculature: Atherosclerotic calcifications of the intracranial vessels. Soft tissues: Normal. Calvarium/osseous structures: No depressed skull fracture. Paranasal sinuses and mastoid air cells: Mild scattered paranasal sinus disease. Visualized orbits: Bilateral aphakia. Senile calcific scleral plaques are present. IMPRESSION: 1. No acute intracranial process. 2. Nonspecific white matter changes, likely secondary to chronic small vessel ischemic disease.
--- NOTE | 2022-01-30 15:46 | XR ---
EXAMINATION TYPE: XR chest 2V DATE OF EXAM: 01/30/2022 COMPARISON: None INDICATION: Altered mental status TECHNIQUE: Frontal and lateral views of the chest are obtained. FINDINGS: The heart size is normal. The pulmonary vasculature is normal. The lungs are clear. IMPRESSION: 1. No acute pulmonary process.
--- NOTE | 2022-01-30 16:32 | CT ---
EXAMINATION TYPE: CT angio head neck CT DLP: 293 mGycm, Automated exposure control for dose reduction was used. DATE OF EXAM: 01/30/2022 3:56 PM COMPARISON: CT brain same day. CLINICAL INDICATION:Female, 86 years old with history of Neuro deficit, acute, stroke suspected, weak ness, ams TECHNIQUE: Axially acquired helical CT angiogram of the head and neck was obtained with contrast. Axi al images are supplemented with 3D reconstructions which [facility] NASCET criteria used. Contrast used:65cc mL of Isovue 370 with IV Contrast, Oral contrast used: None. FINDINGS: CTA HEAD: No evidence of acute intracranial hemorrhage, mass effect, or midline shift. The ventricles, sulci, a nd cisterns are unremarkable. The visualized portions of the internal carotid arteries, middle cerebral arteries, anterior cerebral arteries, and posterior cerebral arteries are patent. Vertebral arteries are patent. The basilar artery is occluded just after its origin with reconstituti on 8 mm more cephalad. There is atherosclerotic calcified plaque of the internal carotid arteries int racranial portions. CTA NECK: Right Carotid System: The common carotid artery and external carotid artery are patent. The carotid bifurcation demonstrate s predominantly calcified atherosclerotic plaque with 50-70% stenosis. Just proximal to the cavernous portion of the internal carotid artery is soft plaque versus extrinsic impression best appreciated o n series 401 image 84 with 25-50% stenosis. There is tortuous internal carotid artery. Left Carotid System: The common carotid artery and external carotid artery are patent. The carotid bifurcation demonstrate s predominantly calcified atherosclerotic plaque with 50-70% stenosis. The remaining portions of the internal carotid artery demonstrate normal size without significant narrowing. Vertebral arteries are patent without evidence hemodynamically significant stenosis. There is a three-vessel aortic arch. There is moderate to severe atherosclerosis of the arterial vasc ulature. There is occlusion of the left subclavian artery extending from its origin measuring up to 9 mm in length from noncalcified plaque. IMPRESSION: 1. Occlusion of the basilar artery with reconstitution approximately 8 mm cephalad. 2. Short segment occlusion of the left subclavian artery extending approximately 9 mm from its origi n. 3. Bilateral predominantly calcified atherosclerotic plaque at the bifurcations of the internal [place] arteries with at least 50-70% stenosis. 4. Right internal carotid artery soft plaque versus extrinsic impression with at least 25-50% stenos is just proximal to the petrous portion of the internal carotid artery.
[2022-01-30] MEDS ORDERED: ASPIRIN 325 MG TAB PO STA (18:28)
[2022-01-30] MEDS ORDERED: CLOPIDOGREL 75 MG TAB PO STA (18:29)
[2022-01-30 21:58] LABS: Appearance,Urine Clear (Clear); Bilirubin,Urine Negative (Negative); Blood,Urine Trace (Negative); Color,Urine Yellow; Glucose,Urine (UA) Negative (Negative); Ketones,Urine Negative (Negative); Leukocyte Esterase,Urine Negative (Negative); Nitrite,Urine Negative (Negative); PH, Urine 6.5 (5.0-8.0); Protein,Urine 1+ (Negative); RBC,Urine 3 /hpf (0-5); Squamous Epithelial Cell,Urine <1 /hpf (0-4); Urobilinogen,Urine <2.0 mg/dL (<2.0); WBC,Urine 1 /hpf (0-5)
[2022-01-30 22:05] LABS: Specific Gravity,Urine >1.050 (1.001-1.035)
[2022-01-31] MEDS: HEPARIN SODIUM,PORCINE/PF 5,000 UNIT/0.5 ML SYRINGE SQ SCH ×2 (00:44→09:45)
[2022-01-31] MEDS ORDERED: ASPIRIN 81 MG PO SCH (09:00)
[2022-01-31] MEDS ORDERED: CLOPIDOGREL 75 MG TAB PO SCH (09:00)
--- NOTE | 2022-01-31 09:09 | MR ---
EXAMINATION TYPE: MR brain wo con DATE OF EXAM: 01/31/2022 COMPARISON: CT brain from 1 day earlier HISTORY: Weakness, ams, stroke TECHNIQUE: Multiplanar, multisequence imaging of the brain and brainstem is performed without IV cont rast. FINDINGS: Diffusion weighted images demonstrate no evidence of a recent infarct or other diffusion abnormality. The ventricular system and cisternal spaces are normal in size and appearance. The brain volume is a ge appropriate. Focal and confluent areas of T2 hyperintensity are seen throughout the white matter g reatest at deep and periventricular levels. Lesions are nonspecific in appearance and distribution. Midline structures demonstrate normal morphology. The craniocervical junction appears within normal limits. Normal vascular flow voids are present. The visualized sinuses are clear and the globes are i ntact. IMPRESSION: No MRI evidence for recent infarct. Advanced chronic small vessel ischemic changes are pr esent.
[2022-01-31] MEDS ORDERED: amLODIPine 10 MG TAB PO SCH (09:15)
[2022-01-31] MEDS ORDERED: carvediloL 6.25 MG TAB PO SCH (09:15)
[2022-01-31] MEDS ORDERED: CITALOPRAM HYDROBROMIDE 20 MG TAB PO SCH (09:15)
[2022-01-31] MEDS ORDERED: PANTOPRAZOLE 40 MG TABLET PO SCH (09:15)
--- NOTE | 2022-01-31 09:29 | CA ---
Transthoracic Echo Report Name: Karmen Escalera Age: 86 Gender: F : 1935 Exam Date: 01/31/2022 09:04 Exam Location: [place] [facility] Ht (in): 62 Wt (lb): 134 Ordering Physician: Lefty Pastrana MD Attending/Referring Phys: Delinquent Account Clerk Loan Akers RDCS Procedure CPT: Indications: stroke Cardiac Hx: Cath with stent Technical Quality: Good Contrast 1: Total Dose (mL): Contrast 2: Total Dose (mL): MEASUREMENTS (Male / Female) Normal Values 2D ECHO LV Diastolic Diameter PLAX 3.3 cm 4.2 - 5.9 / 3.9 - 5.3 cm LV Systolic Diameter PLAX 2.0 cm IVS Diastolic Thickness 1.1 cm 0.6 - 1.0 / 0.6 - 0.9 cm LVPW Diastolic Thickness 1.2 cm 0.6 - 1.0 / 0.6 - 0.9 cm LV Relative Wall Thickness 0.7 LA Volume 23.8 cm??? 18 - 58 / 22 - 52 cm??? M-MODE Aortic Root Diameter MM 2.8 cm LA Systolic Diameter MM 3.3 cm LA Ao Ratio MM 1.2 MV E Point Septal Separation 0.5 cm AV Cusp Separation MM 1.1 cm DOPPLER AV Peak Velocity 155.0 cm/s AV Peak Gradient 9.6 mmHg MV Area PHT 11.4 cm??? MR Peak Velocity 234.1 cm/s MR Peak Gradient 21.9 mmHg Mitral E Point Velocity 74.5 cm/s Mitral A Point Velocity 134.9 cm/s Mitral E to A Ratio 0.6 MV Deceleration Time 66.6 ms MV E' Velocity 3.3 cm/s Mitral E to MV E' Ratio 22.9 TR Peak Velocity 257.2 cm/s TR Peak Gradient 26.5 mmHg Right Ventricular Systolic Press 30.1 mmHg FINDINGS Left Ventricle Mildly increased septal wall thickness. Mildly increased posterior wall thickness. Left ventricular ejection fraction is estimated at 55-60_%. Left ventricular cavity size normal. Grade 1 diastolic dysfunction. Right Ventricle The right ventricle is normal in size and function. Right Atrium The right atrium is normal in size. Left Atrium The left atrium is normal in size. Mitral Valve Structurally normal mitral valve without significant stenosis or prolapse. There is mild mitral regurgitation. Mitral valve thickened. Aortic Valve Structurally normal aortic valve without significant sclerosis or stenosis. There is no aortic regurgitation. Tricuspid Valve Structurally normal tricuspid valve without significant stenosis. Pulmonary artery systolic pressure is normal. Mild tricuspid regurgitation. Pulmonic Valve Structurally normal pulmonic valve without significant stenosis. There is no pulmonic regurgitation. Pericardium Normal pericardium without effusion. Aorta Normal aortic root dimension. CONCLUSIONS LVH with preserved systolic function, ejection fraction greater than 50-60% Previewed by: Dr. Yonatan Hilliard MD (Electronically Signed) Final Date: 31 January 2022 09:28
--- NOTE | 2022-01-31 10:27 | P.CNNES ---
History of Present Illness Consult date: 01/31/22 Requesting physician: Buster Mosqueda Reason for Consult: retinal artery occlusion, basilar artery occlusion, subclavian artery occlu History of Present Illness: This is an 86-year-old woman with history of hypertension, hyperlipidemia presented emergency department on 01/30/2022 because of the visual disturbance in the left eye. Patient's onset of symptoms began 4 days prior to her presentation to the hospital. It seems that the patient went to see her commissary worker and that he felt the patient had retinal artery occlusion and left eye since she had upper lateral left visual field defect that the son relate to the ED team. Patient denies of any headache, any focal weakness, any difficulty with speech or any numbness. She denies of any eye pain. At home the patient is on pravastatin 20 mg daily at bedtime Some of the workup in our facility consisted of: Initial vital signs his blood pressure of 177/82, heart rate of 77, respiratory of 18, temperature of 98.0 Fahrenheit oral and pulse ox of 94% liters at room air. Otherwise the patient's systolic blood pressures been doing much better and diastolic is been in the 70s 80s CBC with differential is unremarkable PT, PTT and INR is within normal limits CT head is reported as no acute intercranial process. Nonspecific white matter changes, likely secured due to chronic small vessel ischemic disease. Personal review the CT of the head and I reviewed the report. CT angiography of the head and neck was reported as occlusion of the basilar artery with reconstitution approximately 8 mm cephalad. Short segment occlusion of the left subclavian artery extending approximately 9 mm from its origin. Bilateral predominant calcified office carotid plaque at the bifurcation of the internal carotid arteries with at least 5070% stenosis. Right internal carotid arteries soft plaque versus extrinsic impression with at least 20-50% stenosis just proximal to the petrous portion of the internal carotid artery. EKG is reported as sinus rhythm. Moderate and intraventricular conduction delay. ST deviation and moderate T-wave abnormality consider lateral ischemia. Abnormal EKG. Patient did not get any IV TPA since patient is a 4 days out from her onset of presentation and the risk outweighed the benefit. Review of Systems Review of system: The 12 point system was reviewed and apparent positive and negative per HPI. Past Medical History Past Medical History: GERD/Reflux, Hyperlipidemia, Hypertension, Osteoarthritis (OA) Additional Past Medical History / Comment(s): unable to tolerate statins, sinus problems, urinary incontinence History of Any Multi-Drug Resistant Organisms: None Reported Past Surgical History: Bladder Surgery, Orthopedic Surgery Additional Past Surgical History / Comment(s): bladder suspension, rt knee arthroscopy, hemmoroidectomy, latasha cataracts, rt eye sx for "hole in eye" Past Anesthesia/Blood Transfusion Reactions: No Reported Reaction Past Psychological History: Anxiety Smoking Status: Former smoker Past Alcohol Use History: None Reported Additional Past Alcohol Use History / Comment(s): quit smoking about 2006, smoked 1/2 ppd from age 18's Past Drug Use History: None Reported - Past Family History Father Family Medical History: Cancer Medications and Allergies Home Medications Medication Instructions Recorded Confirmed Type Citalopram Hydrobromide 20 mg PO DAILY 04/22/17 01/30/22 History [Citalopram HBr] Omeprazole 20 mg PO DAILY 04/22/17 01/30/22 History Pravastatin Sodium [Pravachol] 20 mg PO HS 01/30/22 01/30/22 History amLODIPine [Norvasc] 10 mg PO DAILY 01/30/22 01/30/22 History carvediloL [Coreg] 6.25 mg PO BID 01/30/22 01/30/22 History Allergies Allergy/AdvReac Type Severity Reaction Status Date / Time cephalexin [From Keflex] Allergy Rash/Hives Verified 01/30/22 14:20 Iodinated Contrast Media Allergy Rash/Hives Verified 01/30/22 14:20 [Iodinated Contrast- Oral and IV Dye] Penicillins Allergy Rash/Hives Verified 01/30/22 14:20 Jcuuhhr-UZV-RlY Reductase AdvReac muscle pain Verified 01/30/22 14:20 Inhibitor [Nvbrkce-Fwd-Txm Reductase Inhibitor] Physical Examination - Vital Signs Vital Signs: Vital Signs Temp Pulse Pulse Resp BP BP BP 01/31/22 04:00 97.8 F 78 18 113/66 01/31/22 02:00 70 16 01/31/22 00:00 97.8 F 70 16 96/61 01/30/22 20:17 97.5 F L 83 16 145/83 01/30/22 20:00 83 16 01/30/22 18:57 76 18 112/76 01/30/22 17:02 70 16 114/78 01/30/22 16:00 88 22 126/88 01/30/22 12:04 98.0 F 77 18 177/82 BP Pulse Ox 01/31/22 04:00 150/66 94 L 01/31/22 02:00 01/31/22 00:00 138/84 95 01/30/22 20:17 96 01/30/22 20:00 01/30/22 18:57 95 01/30/22 17:02 95 01/30/22 16:00 98 01/30/22 12:04 94 L Intake and Output 01/30/22 01/31/22 01/31/22 22:59 06:59 14:59 Output Total 100 350 200 Balance -100 -350 -200 Output: Urine 100 350 200 Other: Voiding Method Diaper Diaper Weight 61.235 kg 60.9 kg GENERAL: The patient is lying in bed and is not in acute distress. CHEST: The heart rate is regular rate rhythm. No murmurs to auscultation. LUNG: Clear to auscultation bilaterally no wheezing noted throughout. Not labored breathing. ABDOMEN/GI: Bowel sounds present in all 4 quadrants. No tenderness to palpation throughout. NEUROLOGICAL: Higher mental function: The patient is awake, alert, oriented to self, place and time. Patient is following commands. No aphasia and no neglect. Cranial nerves: The pupils are round, equal and reactive to light and acco mmodation. Visual foreman is left eye: has defect throughout except left inferior quadrant and right eye is full to confrontation. Minimal/mild left eye extropia. Extraocular movement is intact no nystagmus is noted. Facial sensation is normal to touch throughout. The facial strength is normal throughout. Hearing is severely decreased bilaterally to hand rub (patient has hearing aids). Tongue is midline and moved [id number] without any difficulty. No dysarthria is noted. Shoulder shrug is normal bilaterally. Motor: Gait is normal. The strength is 5 over 5 throughout. Normal tone and bulk. Cerebellum: Normal finger to nose bilaterally. Sensation: Sensation is normal to touch throughout. Reflexes (right/left): 2+ throughout. Plantars are mute bilaterally. Results - Laboratory Findings CBC and BMP: 01/30/22 13:37 01/30/22 13:37 Abnormal Lab Findings: Abnormal Labs 01/30/22 01/30/22 13:37 21:49 Carbon Dioxide 31 H BUN 18 H Alkaline Phosphatase 133 H Total Protein 8.7 H Ur Specific [place] >1.050 H Urine Protein 1+ H Urine Blood Trace H Assessment and Plan Assessment: Acute Left eye visual field defect (on examination has entire left eye visual field defect except left inferior and started 4 days prior to presentation) due to acute ischemic stroke. Occlusion of basilar artery, short segment occlusion of left subclavian artery extending approximately 9 mm from its origin and Bilateral predominant calcified office carotid plaque at the bifurcation of the internal carotid arteries with at least 50-70% stenosis per CTA History of hypertension Plan: I gave the patient aspirin 325mg once and Plavix 300mg loading dose yesterday and I started the patient on aspirin 81 mg and Plavix 75 mg daily for secondary stroke prophylaxis. The patient needs to be on dual antiplatelets for now and will defer modification of medication until she follows-up with vascular surgery team as outpatient and intervnetional neurologist. She was restarted on Pravas tatin 20mg (home medication) but her allergy/adverse list states statin but could not tell us. Avoid high dose since can cause muscle pain. Ordered MRI, 2-D echo and carotid duplex I consulted vascular surgery team for the subclavian artery occlusion. I will speak to the neuro intervention team regarding her basilar occlusion. Pending final input from them. But in the mean time, I feel the patient is doing well for her basilar occlusion or other occlusion/stenosis reported on CTA. I do not feel she need any urgent surgical intervention because clinically doing well, and risk of intervention outweigh the benefit. The patient needs to follow-up with Dr. Waqas Rousseau as outpatient for further work-up/management ([phone]) Every 4 hours neuro checks Cardiac monitoring PT OT and SKIDDER LEVER OPERATOR are consulted Patient was notified to avoid driving for now because of her visual disturbance and to follow-up as outpatient for further evaluation. We'll defer the rest of the medical medical the primary team For DVT prophylaxis I started the patient on heparin subcu 5000 units every 12 hours The plan is discussed with the patient's nurse. I also updated the patient's children (son and daughter) who were at bedside. Thank you for the consultation. Lefty Pastrana M.D. Neuro-hospitalist Time with Patient: Greater than 30
--- NOTE | 2022-01-31 12:28 | P.GSCN ---
History of Present Illness Consult date: 01/31/22 Reason for Consult: Left subclavian occlusion Requesting physician: Lefty Pastrana History of present illness: This is a pleasant 86-year-old female with a past medical history including hypertension, hyperlipidemia and tobacco abuse who presented to the emergency department yesterday with complaints of visual disturbances in her left eye. Patient states she had a left eye vision loss that began 4-5 days ago. She went to see Dr. Chacon and figured that it was similar to right visual changes in the past that she has had. She states she she was sent from Dr. Chacon's office for testing and then subsequently sent here to the emergency department. She continues to have visual loss in the left eye. Denies any weakness in her upper or lower extremities. Denies any pain in her left upper extremity or numbness and tingling. She denies any other focal deficits. According to the patient's chart her son had reported Dr. Field at a concern for a retinal artery occlusion. Patient states she has followed in the past with Dr. Lyon for carotid stenosis. States she has not had any imaging or follow-up in 3 years. She says they have just been monitoring in the past and has not required any surgical intervention.patient with discordant blood pressures of left upper extremity 96/61, right upper extremity 138/84. Workup included: Brain CT reports no acute intracranial process. Nonspecific white matter changes, likely secondary to chronic small vessel ischemic disease CT angiogram head and neck reports occlusion of the basilar artery with reconstitution approximately 8 mm cephalad. Short segment occlusion of the left subclavian artery extending approximately 9 mm from its origin. Bilateral pred ominantly calcified arthrosclerotic plaque at the bifurcations of the internal carotid arteries with at least 50-70% stenosis. Right internal carotid artery soft plaque versus 6 been sick impression with at least 25-50% stenosis just proximal to the petrous portion of the internal carotid artery Brain MRI reports no MRI evidence of recent infarct. Advanced chronic small vessel ischemic changes present. Echocardiogram LVH with preserved systolic function, ejection fraction greater than 50-60% Review of Systems A 14 point review systems was completed all pertinent positives and negatives as stated in the HPI. Past Medical History Past Medical History: GERD/Reflux, Hyperlipidemia, Hypertension, Osteoarthritis (OA) Additional Past Medical History / Comment(s): unable to tolerate statins, sinus problems, urinary incontinence History of Any Multi-Drug Resistant Organisms: None Reported Past Surgical History: Bladder Surgery, Orthopedic Surgery Additional Past Surgical History / Comment(s): bladder suspension, rt knee arthroscopy, hemmoroidectomy, latasha cataracts, rt eye sx for "hole in eye" Past Anesthesia/Blood Transfusion Reactions: No Reported Reaction Past Psychological History: Anxiety Smoking Status: Former smoker Past Alcohol Use History: None Reported Additional Past Alcohol Use History / Comment(s): quit smoking about 2006, smoked 1/2 ppd from age 18's Past Drug Use History: None Reported - Past Family History Father Family Medical History: Cancer Medications and Allergies Home Medications Medication Instructions Recorded Confirmed Type Citalopram Hydrobromide 20 mg PO DAILY 04/22/17 01/30/22 History [Citalopram HBr] Omeprazole 20 mg PO DAILY 04/22/17 01/30/22 History Pravastatin Sodium [Pravachol] 20 mg PO HS 01/30/22 01/30/22 History amLODIPine [Norvasc] 10 mg PO DAILY 01/30/22 01/30/22 History carvediloL [Coreg] 6.25 mg PO BID 01/30/22 01/30/22 History Allergies Allergy/AdvReac Type Severity Reaction Status Date / Time cephalexin [From Keflex] Allergy Rash/Hives Verified 01/30/22 14:20 Iodinated Contrast Media Allergy Rash/Hives Verified 01/30/22 14:20 [Iodinated Contrast- Oral and IV Dye] Penicillins Allergy Rash/Hives Verified 01/30/22 14:20 Cqlybnm-RIT-AuA Reductase AdvReac muscle pain Verified 01/30/22 14:20 Inhibitor [Sqiohzf-Swx-Vfb Reductase Inhibitor] Surgical - Exam Vital Signs Temp Pulse Resp BP Pulse Ox 98.0 F 77 18 177/82 94 L 01/30/22 12:04 01/30/22 12:04 01/30/22 12:04 01/30/22 12:04 01/30/22 12:04 General appearance: The patient is alert, oriented, appears in no acute distress. HET: Head is normocephalic and atraumatic. Pupils are equal and reactive. Neck: Supple without lymphadenopathy. Trachea midline. Audible bilateral carotid bruit. Heart: S1 S2. Regular rate and rhythm. Lungs: Clear to auscultation bilaterally. Abdomen: Soft, nontender, nondistended. Extremities: Normal skin color and turgor. Palpable bilateral +2 radial pulse. Neurological: Left partial vision loss. Facial symmetry, tongue protrudes midline, speech is fluent. Good tone and strength in upper and lower extremities. Full range of motion of bilateral upper extremities. Results - Labs 01/30/22 13:37 01/30/22 13:37 Abnormal Lab Results - Last 24 Hours (Table) 01/30/22 01/30/22 Range/Units 13:37 21:49 Carbon Dioxide 31 H (22-30) mmol/L BUN 18 H (7-17) mg/dL Alkaline Phosphatase 133 H (38-126) U/L Total Protein 8.7 H (6.3-8.2) g/dL Ur Specific [place] >1.050 H (1.001-1.035) Urine Protein 1+ H (Negative) Urine Blood Trace H (Negative) Diabetes panel 01/30/22 Range/Units 13:37 Sodium 141 (137-145) mmol/L Potassium 3.6 (3.5-5.1) mmol/L Chloride 103 (98-107) mmol/L Carbon Dioxide 31 H (22-30) mmol/L BUN 18 H (7-17) mg/dL Creatinine 0.81 (0.52-1.04) mg/dL Glucose 98 (74-99) mg/dL Calcium 9.0 (8.4-10.2) mg/dL AST 26 (14-36) U/L ALT 13 (4-34) U/L Alkaline Phosphatase 133 H (38-126) U/L Total Protein 8.7 H (6.3-8.2) g/dL Albumin 4.7 (3.5-5.0) g/dL Calcium panel 01/30/22 Range/Units 13:37 Calcium 9.0 (8.4-10.2) mg/dL Albumin 4.7 (3.5-5.0) g/dL Pituitary panel 01/30/22 Range/Units 13:37 Sodium 141 (137-145) mmol/L Potassium 3.6 (3.5-5.1) mmol/L Chloride 103 (98-107) mmol/L Carbon Dioxide 31 H (22-30) mmol/L BUN 18 H (7-17) mg/dL Creatinine 0.81 (0.52-1.04) mg/dL Glucose 98 (74-99) mg/dL Calcium 9.0 (8.4-10.2) mg/dL Adrenal panel 01/30/22 Range/Units 13:37 Sodium 141 (137-145) mmol/L Potassium 3.6 (3.5-5.1) mmol/L Chloride 103 (98-107) mmol/L Carbon Dioxide 31 H (22-30) mmol/L BUN 18 H (7-17) mg/dL Creatinine 0.81 (0.52-1.04) mg/dL Glucose 98 (74-99) mg/dL Calcium 9.0 (8.4-10.2) mg/dL Total Bilirubin 0.4 (0.2-1.3) mg/dL AST 26 (14-36) U/L ALT 13 (4-34) U/L Alkaline Phosphatase 133 H (38-126) U/L Total Protein 8.7 H (6.3-8.2) g/dL Albumin 4.7 (3.5-5.0) g/dL - Imaging Comments: See HPI for details Assessment and Plan Assessment: 1. Acute Left eye vision loss 2. 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 Internal carotid artery stenosis 5. Former smoker Plan: 1. Continue aspirin, Plavix and statin 2. Carotid duplex ordered 3. Await further recommendations from neurology 4. Further recommendations forthcoming per vascular surgeon Thank you for this consultation, we will continue to follow. The impression and plan of care has been dictated as directed. Dr. Stark I performed a history and examination of this patient, discussed the same with the dictator. I agree with the dictator's note ,documented as a scribe. Any additional findings or plans will be noted.
[2022-01-31] MEDS ORDERED: LORazepam 0.5 MG TAB PO PRN (13:46)
[2022-01-31] MEDS ORDERED: MELATONIN 3 MG TABLET PO PRN (13:46)
[2022-01-31] MEDS ORDERED: NALOXONE 0.4 MG/ML 1 ML VIAL IV PRN (13:46)
[2022-01-31] MEDS ORDERED: ACETAMINOPHEN TAB 325 MG TAB PO PRN (13:46)
[2022-01-31] MEDS ORDERED: ONDANSETRON 4 MG/2 ML VIAL IVP PRN (13:46)
[2022-01-31] MEDS ORDERED: LACTULOSE 20 GM/30 ML CUP PO PRN (13:46)
[2022-01-31] MEDS ORDERED: CALCIUM CARBONATE 500 MG CHEWABLE PO PRN (13:46)
--- NOTE | 2022-01-31 13:49 | P.HPIM ---
History of Present Illness H&P Date: 01/31/22 Chief Complaint: Sudden change in vision This is a pleasant 86-year-old patient who follows with Dr. Tish Kaplan. Chronic stable medical conditions include GERD, hyperlipidemia, hypertension, osteoarthritis, urinary incontinence. At baseline a bit unsteady gait. She is in a smoker. Yesterday she does slight headache. She then felt that the TV is bloody.. She will see only the lower half of the visual field from her left eye. [place] a black blanket in the upper half In 4 days ago. No change in appetite. Patient has mild cognitive impairment. Arthritis in the joints. No change in swallowing or speech. No focal weakness otherwise. Patient did code see her inspector precision assembly and he had thought patient had left retinal artery occlusion. She was admitted for the same. Review of systems: GEN.: None EYES: As above HEENT: None NECK: None RESPIRATORY: None CARDIOVASCULAR: None GASTROINTESTINAL: None GENITOURINARY: Incontinence MUSCULOSKELETAL: Joint pains LYMPHATICS: None HEMATOLOGICAL: None PSYCHIATRY: Bit forgetful NEUROLOGICAL: As above, baseline some unsteadiness in gait. Sometimes uses a cane. 6 medical history to include: GERD, hyperlipidemia, hypertension, osteoarthritis, it incontinence Social history: Lives alone. No alcohol. Patient smoked for about 50 years about half a pack a day stopped in 2006 Family history: Cancer Physical examination: VITAL SIGNS: 97.5, 95, 15, 146/72, 95% room air GENERAL: BMI 24.6, sitting up in a chair, awake, comfortable. EYES: Pupils equal. Conjunctiva normal. HEENT: External appearance of nose and ears normal, oral cavity grossly normal. NECK: JVD not raised; masses not palpable. HEART: First and second heart sounds are normal; no edema. LUNGS: Respiratory rate normal; clear to auscultation. ABDOMEN: Soft, nontender, liver spleen not palpable, no masses palpable. PSYCH: Patient is awake and alert and able to answer patient's reasonablyl. MUSCULOSKELETAL:No Clubbing/cyanosis;muscles-grossly intact. OA NEUROLOGICAL: Decreased visual field in the left eye., power and sensation preeti ssly intact. LYMPHATICS: No lymph nodes palpable in the axilla and neck INVESTIGATIONS, reviewed in the clinical context: White count 7.4 hemoglobin 14.6 platelets 193 potassium 3.6 creatinine 0.81 UA: Protein 1+ EKG tracing personally reviewed by me-normal sinus rhythm. Nonspecific ST segment changes. Chest x-ray film personally reviewed by me-questionable chronic changes Computed tomography scan brain without contrast: No acute process. Nonspecific white matter changes. CT angiogram of the brain: Occlusion of the basilar artery about 8 mm Cephulac. Short segment occlusion of the left subclavian artery about 9 mm from its origin. Bilateral internal carotid artery calcification at least 50-70% stenosis. Right ICA block less than 50% stenosis. MRI brain without contrast: No evidence of recent infarct. Advanced chronic small vessel ischemic changes are present. 2-D echocardiogram: EF 55-60%. 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 Due to acute ischemic stroke. Aspirin, Plavix. Neurology consulted. MRI unremarkable. 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 Bilateral internal carotid artery calcification at least 50-70% stenosis. Consultation to vascular surgery. Being followed by neurology. 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 Does use a cane Fall precautions Aspirin, Plavix. Neuro checks. Fall precaution. Neurology consulted. Vascular surgery consulted. Care was discussed at length with the patient, the daughter lives out of the bedside. Patient told she cannot drive. Family informed. Past Medical History Past Medical History: GERD/Reflux, Hyperlipidemia, Hypertension, Osteoarthritis (OA) Additional Past Medical History / Comment(s): unable to tolerate statins, sinus problems, urinary incontinence History of Any Multi-Drug Resistant Organisms: None Reported Past Surgical History: Bladder Surgery, Orthopedic Surgery Additional Past Surgical History / Comment(s): bladder suspension, rt knee arthroscopy, hemmoroidectomy, latasha cataracts, rt eye sx for "hole in eye" Past Anesthesia/Blood Transfusion Reactions: No Reported Reaction Past Psychological History: Anxiety Smoking Status: Former smoker Past Alcohol Use History: None Reported Additional Past Alcohol Use History / Comment(s): quit smoking about 2006, smoked 1/2 ppd from age 18's Past Drug Use History: None Reported - Past Family History Father Family Medical History: Cancer Medications and Allergies Home Medications Medication Instructions Recorded Confirmed Type Citalopram Hydrobromide 20 mg PO DAILY 04/22/17 01/30/22 History [Citalopram HBr] Omeprazole 20 mg PO DAILY 04/22/17 01/30/22 History Pravastatin Sodium [Pravachol] 20 mg PO HS 01/30/22 01/30/22 History amLODIPine [Norvasc] 10 mg PO DAILY 01/30/22 01/30/22 History carvediloL [Coreg] 6.25 mg PO BID 01/30/22 01/30/22 History Allergies Allergy/AdvReac Type Severity Reaction Status Date / Time cephalexin [From Keflex] Allergy Rash/Hives Verified 01/30/22 14:20 Iodinated Contrast Media Allergy Rash/Hives Verified 01/30/22 14:20 [Iodinated Contrast- Oral and IV Dye] Penicillins Allergy Rash/Hives Verified 01/30/22 14:20 Cqzxdau-TKM-EjT Reductase AdvReac muscle pain Verified 01/30/22 14:20 Inhibitor [Kldprbc-Cra-Wjw Reductase Inhibitor] Physical Exam Vitals: Vital Signs Temp Pulse Pulse Resp BP BP BP 01/31/22 04:00 97.8 F 78 18 113/66 01/31/22 02:00 70 16 01/31/22 00:00 97.8 F 70 16 96/61 01/30/22 20:17 97.5 F L 83 16 145/83 01/30/22 20:00 83 16 01/30/22 18:57 76 18 112/76 01/30/22 17:02 70 16 114/78 01/30/22 16:00 88 22 126/88 01/30/22 12:04 98.0 F 77 18 177/82 BP Pulse Ox 01/31/22 04:00 150/66 94 L 01/31/22 02:00 01/31/22 00:00 138/84 95 01/30/22 20:17 96 01/30/22 20:00 01/30/22 18:57 95 01/30/22 17:02 95 01/30/22 16:00 98 01/30/22 12:04 94 L Intake and Output 01/30/22 01/31/22 01/31/22 22:59 06:59 14:59 Intake Total 118 Output Total 100 350 200 Balance -100 -350 -82 Intake: Oral 118 Output: Urine 100 350 200 Other: Voiding Method Diaper Diaper Weight 61.235 kg 60.9 kg Results CBC & Chem 7: 01/30/22 13:37 01/30/22 13:37 Labs: Abnormal Lab Results - Last 24 Hours (Table) 01/30/22 01/30/22 Range/Units 13:37 21:49 Carbon Dioxide 31 H (22-30) mmol/L BUN 18 H (7-17) mg/dL Alkaline Phosphatase 133 H (38-126) U/L Total Protein 8.7 H (6.3-8.2) g/dL Ur Specific [place] >1.050 H (1.001-1.035) Urine Protein 1+ H (Negative) Urine Blood Trace H (Negative)
[2022-01-31 15:34] VITALS: BP 133/60; PULSE 81; RESP 16; TEMP 98.2
[2022-01-31 16:00] LABS: Chol/HDL Ratio 4.73 Ratio; LDL Cholesterol,Calculated 171.2 mg/dL (0.0-131.0)
--- NOTE | 2022-01-31 16:05 | US ---
EXAMINATION TYPE: US carotid duplex BILAT DATE OF EXAM: 01/31/2022 COMPARISON: CLINICAL HISTORY: carotid stenosis. Patient states having stroke. HTN controlled with meds. TECHNIQUE: Carotid duplex ultrasound examination. Indirect Doppler criteria was utilized. FINDINGS: EXAM MEASUREMENTS: RIGHT: Peak Systolic Velocity (PSV) cm/sec ----- Right CCA: 45.3 ----- Right ICA: 115.7 ----- Right ECA: Not visualized ICA/CCA ratio: 2.6 RIGHT: End Diastole cm/sec ----- Right CCA: 11.3 ----- Right ICA: 28.4 ----- Right ECA: Not visualized LEFT: Peak Systolic Velocity (PSV) cm/sec ----- Left CCA: 39.6 ----- Left ICA: 135.0 ----- Left ECA: 263.8 ICA/CCA ratio: 3.4 LEFT: End Diastole cm/sec ----- Left CCA: 10.4 ----- Left ICA: 34.9 ----- Left ECA: 56.9 VERTEBRALS (direction of flow): Right Vertebral: Antegrade Left Vertebral: Retrograde Rhythm: Normal CATERING DRIVER NOTES: Unable to visualized right ECA vascular flow. Elevated velocity in left bulb and left ECA. Plaque seen. Bilateral significant stenosis. Difficult to distinguish left ECA vs ICA du e to plaque. IMPRESSION: 1. 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 The external carotid arteries may be obstructed. 2. Other previously at least moderate narrowing of left internal carotid artery is 50-69%. Mild narro wing of the right internal carotid artery up to 50% medially present. Criteria for Assigning % of Stenosis / Diameter reduction (Estimation based on the indirect measurements of the internal carotid artery velocities (ICA PSV). 1. Normal (no stenosis)=ICA PSV < 125 cm/s: ratio < 2.0: ICA EDV<40 cm/s. 2. Less than 50% stenosis=ICA PSV < 125 cm/s: ratio < 2.0: ICA EDV<40 cm/s. 3. 50 to 69% stenosis=ICA PSV of 125 to 230 cm/s: ration 2.0 ? 4.0: ICA EDV 40-100 cm/s. 4. Greater than 70% stenosis to near occlusion= ICA PSV > 230 cm/s: ratio > 4.0: ICA EDV > 100 cm/s. 5. Near occlusion= ICA PSV velocities may be low or undetectable: variable ratio and ICA EDV. 6. Total occlusion=unable to detect flow.
--- NOTE | 2022-01-31 17:35 | P.DS ---
Providers Date of admission: 01/30/22 17:30 Expected date of discharge: 01/31/22 Attending physician: Enrique Sheldon Consults: 01/30/22 17:31 Consult Physician Routine Consulting Provider: Lefty Pastrana Consult Reason/Comments: Retinal artery occlusion, basilar artery occlusion, subclavian artery occlu Do you want consulting provider notified?: Already Contacted 01/30/22 18:32 Consult Physician Routine Consulting Provider: Branden Le Consult Reason/Comments: subclavian artery occlusion Do you want consulting provider notified?: Yes Primary care physician: Cat Kaplan [facility] Course: Chief Complaint: Sudden change in vision This is a pleasant 86-year-old patient who follows with Dr. Tish Kaplan. Chronic stable medical conditions include GERD, hyperlipidemia, hypertension, osteoarthritis, urinary incontinence. At baseline a bit unsteady gait. She is in a smoker. Yesterday she does slight headache. She then felt that the TV is bloody.. She will see only the lower half of the visual field from her left eye. Pearson a black blanket in the upper half In 4 days ago. No change in appetite. Patient has mild cognitive impairment. Arthritis in the joints. No change in swallowing or speech. No focal weakness otherwise. Patient did code see her mechanical engineering draftsperson and he had thought patient had left retinal artery occlusion. She was admitted for the same. Patient bit her with acute ischemic stroke. With poor vision in the left eye. CT angiogram of the head and neck and MRI results as below. Discussed with Dr. Pastrana from neurology. Patient to follow up outpatient with intervention neurology. No urgency. Aspirin Plavix. Also spoke to [employer] CLERK from vascular. We'll follow with Dr. Stark outpatient. No driving allowed Discussion and discharge planning more than 35 minutes . 6 medical history to include: GERD, hyperlipidemia, hypertension, osteoarthritis, it incontinence Social history: Lives alone. No alcohol. Patient smoked for about 50 years about half a pack a day stopped in 2006 Family history: Cancer Physical examination: VITAL SIGNS: 97.5, 95, 15, 146/72, 95% room air GENERAL: BMI 24.6, sitting up in a chair, awake, comfortable. EYES: Pupils equal. Conjunctiva normal. HEENT: External appearance of nose and ears normal, oral cavity grossly normal. NECK: JVD not raised; masses not palpable. HEART: First and second heart sounds are normal; no edema. LUNGS: Respiratory rate normal; clear to auscultation. ABDOMEN: Soft, nontender, liver spleen not palpable, no masses palpable. PSYCH: Patient is awake and alert and able to answer patient's reasonablyl. MUSCULOSKELETAL:No Clubbing/cyanosis;muscles-grossly intact. OA NEUROLOGICAL: Decreased visual field in the left eye., power and sensation grossly intact. LYMPHATICS: No lymph nodes palpable in the axilla and neck INVESTIGATIONS, reviewed in the clinical context: Carotid Doppler: Atheromatous plaque bilateral carotid bifurcations. External catheter may be obstructed. Left ICA 50-69% narrowing. White count 7.4 hemoglobin 14.6 platelets 193 potassium 3.6 creatinine 0.81 UA: Protein 1+ EKG tracing personally reviewed by me-normal sinus rhythm. Nonspecific ST segment changes. Chest x-ray film personally reviewed by me-questionable chronic changes Computed tomography scan brain without contrast: No acute process. Nonspecific white matter changes. CT angiogram of the brain: Occlusion of the basilar artery about 8 mm Cephulac. Short segment occlusion of the left subclavian artery about 9 mm from its origin. Bilateral internal carotid artery calcification at least 50-70% stenosis. Right ICA block less than 50% stenosis. MRI brain without contrast: No evidence of recent infarct. Advanced chronic small vessel ischemic changes are present. 2-D echocardiogram: EF 55-60%. 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 Due to acute ischemic stroke. Aspirin, Plavix. Neurology consulted. MRI unremarkable. 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 Bilateral internal carotid artery calcification at least 50-70% stenosis. Consultation to vascular surgery. Being followed by neurology. 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 Does use a cane Fall precautions Disposition: Home Patient family informed that patient is not allowed to drive Plan - Discharge Summary Discharge Rx Participant: Yes New Discharge Prescriptions: New Clopidogrel [Plavix] 75 mg PO DAILY #30 tab Aspirin 81 mg PO DAILY tab Continue Omeprazole 20 mg PO DAILY Citalopram Hydrobromide [Citalopram HBr] 20 mg PO DAILY Pravastatin Sodium [Pravachol] 20 mg PO HS carvediloL [Coreg] 6.25 mg PO BID amLODIPine [Norvasc] 10 mg PO DAILY Discharge Medication List Citalopram Hydrobromide [Citalopram HBr] 20 mg PO DAILY 04/22/17 [History] Omeprazole 20 mg PO DAILY 04/22/17 [History] Pravastatin Sodium [Pravachol] 20 mg PO HS 01/30/22 [History] amLODIPine [Norvasc] 10 mg PO DAILY 01/30/22 [History] carvediloL [Coreg] 6.25 mg PO BID 01/30/22 [History] Aspirin 81 mg PO DAILY tab 01/31/22 [Rx] Clopidogrel [Plavix] 75 mg PO DAILY #30 tab 01/31/22 [Rx] Follow up Appointment(s)/Referral(s): Waqas Rousseau MD [STAFF PHYSICIAN] - 1 Week Ehsan Stark DO [Doctor of Osteopathic Medicine] - 2 Weeks Cat Kaplan MD [Primary Care Provider] - 1-2 days
[2022-01-31] MEDS ORDERED: PRAVASTATIN SODIUM 20 MG TAB PO SCH (21:00)
== END 2022-01-31 18:23 | disposition home or self-care (01) ==
LOC: EC 12:02 → 3SCARD 17:30 → INTOOBSV 17:30 → 3SCARD 19:16 → UNDODISIN 01-31 18:23
PROVIDERS: ADMIT Hospitalist; ATTEND Hospitalist
DX: I63.22 Cerebral infarction due to unspecified occlusion or stenosis of basilar artery (principal); H34.9 Unspecified retinal vascular occlusion; H53.40 Unspecified visual field defects; H54.62 Unqualified visual loss, left eye, normal vision right eye; I70.8 Atherosclerosis of other arteries; I65.23 Occlusion and stenosis of bilateral carotid arteries; I08.1 Rheumatic disorders of both mitral and tricuspid valves; R26.81 Unsteadiness on feet; G30.1 Alzheimer's disease with late onset; F02.80 Dementia in other diseases classified elsewhere, unspecified severity, without behavioral disturbance, psychotic disturbance, mood disturbance, and anxiety; I10 Essential (primary) hypertension; E78.5 Hyperlipidemia, unspecified; I45.9 Conduction disorder, unspecified; K21.9 Gastro-esophageal reflux disease without esophagitis; M19.90 Unspecified osteoarthritis, unspecified site; F41.9 Anxiety disorder, unspecified; R32 Unspecified urinary incontinence; Z79.899 Other long term (current) drug therapy; Z88.0 Allergy status to penicillin; Z91.041 Radiographic dye allergy status; Z88.1 Allergy status to other antibiotic agents; Z88.8 Allergy status to other drugs, medicaments and biological substances; Z98.41 Cataract extraction status, right eye; Z98.42 Cataract extraction status, left eye; Z87.891 Personal history of nicotine dependence; Z87.19 Personal history of other diseases of the digestive system; Z98.890 Other specified postprocedural states; Z80.9 Family history of malignant neoplasm, unspecified
CPT/HCPCS: 96372; 96374; 96375; 99285; 36415; 93005; 93306; 97162; 92523; 80061; 80053; 84484; 85025; 85610; 85730; 81001; 71046; 93880; 70496; 70450; 70498; 70551; G0378 ×2; J1200; J2930; Q9967; J1644